=== PATIENT | male | born 1960 | race Caucasian/White ===

== ENCOUNTER 2018-11-17 11:08 | Emergency (ER) | payer SELFPAY ==
[~2018-11-17] VITALS: Ht 170.2 cm; Wt 100.2 kg
[2018-11-17 11:39] VITALS: BP 113/64; PULSE 117; RESP 18; Ht 170.2 cm; Wt 100.2 kg
== END 2018-11-17 16:00 | disposition left against medical advice (07) ==
LOC: E/R 11:08
DX: Z53.21 Procedure and treatment not carried out due to patient leaving prior to being seen by health care provider (principal)
CPT/HCPCS: 93005